=== PATIENT | male | born 1970 | race African-American/Black ===

== ENCOUNTER 2016-07-24 11:34 | Emergency (ER) | payer OTHER ==
[~2016-07-24] VITALS: Ht 177.8 cm; Wt 95.0 kg
[~2016-07-24 11:34] MED LIST: CLON0.1T14 PO; COR12 PO; LISI10TA5 PO
[2016-07-24] MEDS ORDERED: SODIUM CHLORIDE 0.9% 1,000 ML IV ONE (12:30)
[2016-07-24] MEDS ORDERED: FAMOTIDINE 20MG/2ML VIAL IV STA (12:30)
[2016-07-24] MEDS ORDERED: MORPHINE SULFATE 4 MG/ML CPJ (NOT FOR IM USE) IV STA (12:30)
[2016-07-24] MEDS ORDERED: ONDANSETRON HCL 4MG/2ML VIAL IV STA (12:30)
[2016-07-24] MEDS ORDERED: HYDRALAZINE 20MG/ML VIAL IV ONE (12:45)
[2016-07-24 13:06] LABS: HEMATOCRIT. 48.8 % (42.0-52.0); MEAN CORPUSCULAR HEMOGLOBIN 30.8 pg (28.0-32.0); MEAN CORPUSCULAR HGB CONC 34.8 g/dL (31.0-37.0); MEAN CORPUSCULAR VOLUME 88.7 fL (80.0-94.0); MEAN PLATELET VOLUME 9.1 fl (7.4-10.4); PLATELET 215 x1000/uL (130-400); RED CELL DISTRIBUTION WIDTH 13.5 % (11.6-14.6); WHITE BLOOD COUNT 15.9 x1000/uL (4.5-11.0)
[2016-07-24 13:08] LABS: DIFFERENTIAL COMMENT 1
[2016-07-24 13:12] LABS: CHLORIDE 103 mEq/L (98-107); INDEX HEMOLYSI 1 (1-3); INDEX ICTERIC 1 (1-4); INDEX LIPEMIC 1 (1-3)
[2016-07-24 13:14] LABS: PROTHROMBIN TIME 10.4 sec
[2016-07-24 13:20] LABS: ALANINE AMINOTRANSFERASE 45 IU/L (13-61); ALBUMIN 5.1 g/dL (3.4-5.0); ANION GAP 14; CALCIUM 10.2 mg/dL (8.5-10.1); CARBON DIOXIDE 27 mEq/L (21-32); LIPASE 89 IU/L (73-393); UREA NITROGEN BLOOD 16 mg/dL (7-21); eGFR 56 mL/min (>60)
[2016-07-24 13:29] LABS: PLATELET ESTIMATE NORMAL
[2016-07-24] MEDS ORDERED: METRONIDAZOLE 500 MG PREMIX 100 ML IV ONE (13:45)
[2016-07-24] MEDS ORDERED: LEVOFLOXACIN 750MG PREMIX 150 ML IV ONE (13:45)
[2016-07-24] MEDS ORDERED: SODIUM CHLORIDE 0.9% 1000ML BAG (SEPSIS BOLUS) IV ONE (13:45)
[2016-07-24] MEDS ORDERED: IOHEXOL-300 100 ML BOTTLE ONE (14:01)
[2016-07-24] MEDS ORDERED: SODIUM CHLORIDE 0.9% 10ML VIAL ONE (14:01)
[2016-07-24 15:37] LABS: LACTIC ACID 3.2 mmol/L (0.4-2.0)
[2016-07-24 15:46] LABS: CLARITY URINE CLEAR (CLEAR); COLOR URINE YELLOW (YELLOW); GLUCOSE URINE NEGATIVE (NEGATIVE); KETONES URINE NEGATIVE (NEGATIVE); LEUKOCYTE ESTERASE URINE NEGATIVE (NEGATIVE); NITRITE URINE NEGATIVE (NEGATIVE); OCCULT BLOOD URINE NEGATIVE (NEGATIVE); PROTEIN URINE TRACE (NEGATIVE); SPECIFIC GRAVITY URINE 1.039 (1.005-1.030); UROBILINOGEN URINE 0.2 E.U./dL (0.2-1.0)
[2016-07-24] MEDS ORDERED: HYDRALAZINE 20MG/ML VIAL IV SCH (16:02)
[2016-07-24 16:05] LABS: *AMPHETAMINES SCREEN URINE NEGATIVE (NEGATIVE); *BARBITURATES SCREEN URINE NEGATIVE (NEGATIVE); *BENZODIAZEPINES SCREEN URINE NEGATIVE (NEGATIVE); *COCAINE SCREEN URINE NEGATIVE (NEGATIVE); CANNABINOID URINE SCREEN PRESUMTIVE POSITIVE (NEGATIVE); ECSTASY MDMA SCREEN URINE NEGATIVE (NEGATIVE); METHADONE URINE SCREEN NEGATIVE (NEGATIVE); OPIATES URINE SCREEN PRESUMTIVE POSITIVE (NEGATIVE); PHENCYCLIDINE URINE SCREEN NEGATIVE (NEGATIVE)
[2016-07-24 16:14] LABS: BACTERIA URINE TRACE; RBC URINE NONE SEEN /hpf (0-2); SQUAMOUS EPITHELIAL CELL URINE RARE /lpf (RARE/1+); WBC URINE NONE SEEN /hpf (0-2)
[2016-07-24 19:12] VITALS: BP 165/111
[2016-07-24] MEDS ORDERED: TRAMADOL 50MG TABLET PO PRN (19:30)
[2016-07-24] MEDS ORDERED: ENOXAPARIN 40MG/0.4ML SYR SUBCUT SCH (19:30)
[2016-07-24] MEDS ORDERED: CLONIDINE 0.1MG TABLET PO PRN (19:30)
[2016-07-24] MEDS ORDERED: MORPHINE SULFATE 2 MG/ML CPJ (NOT FOR IM USE) IV PRN (19:30)
[2016-07-24] MEDS ORDERED: MAGNESIUM/ALUMINUM HYDROXIDE/SIMETHICONE 30ML UDC PO PRN (19:30)
[2016-07-24] MEDS ORDERED: AMLODIPINE 10MG TABLET PO SCH (19:30)
[2016-07-24] MEDS ORDERED: PIPERACILLIN/TAZ 3.375G PREMIX 50 ML IV SCH (19:30)
[2016-07-24] MEDS ORDERED: NA PHOS,M-B/NA PHOS,DI-BA ENEMA 118ML PR PRN (19:30)
[2016-07-24] MEDS ORDERED: GUAIFENESIN 200MG/10ML SUGAR FREE UDC PO PRN (19:30)
[2016-07-24] MEDS ORDERED: DIPHENHYDRAMINE 50MG/ML VIAL IV PRN (19:30)
[2016-07-24] MEDS ORDERED: ONDANSETRON HCL 4MG/2ML VIAL IV PRN (19:30)
[2016-07-24] MEDS ORDERED: ACETAMINOPHEN 325MG TABLET PO PRN (19:30)
[2016-07-24] MEDS ORDERED: IPRATROPIUM/ALBUTEROL 0.5-3(2.5)MG/3ML NEB INH PRN (19:30)
[2016-07-24] MEDS ORDERED: NITROGLYCERIN 0.4MG TABLET SL SL PRN (19:30)
[2016-07-24] MEDS ORDERED: LORAZEPAM 2MG/ML CPJ IV PRN (19:30)
[2016-07-24] MEDS ORDERED: LISINOPRIL 20MG TABLET PO SCH (21:00)
[2016-07-24] MEDS ORDERED: METOPROLOL TARTRATE 25MG TABLET PO SCH (21:00)
[2016-07-24] MEDS ORDERED: ZOLPIDEM TARTRATE 5MG TABLET PO PRN (21:00)
[2016-07-25] MEDS ORDERED: PANTOPRAZOLE SODIUM 40 MG/VIAL IV SCH (09:00)
== END 2016-07-24 19:21 | disposition short-term general hospital (02) ==
LOC: ER 11:37
DX: R19.7 Diarrhea, unspecified (principal); R11.2 Nausea with vomiting, unspecified; K92.2 Gastrointestinal hemorrhage, unspecified; I16.0 Hypertensive urgency; K52.9 Noninfective gastroenteritis and colitis, unspecified; I10 Essential (primary) hypertension; F12.10 Cannabis abuse, uncomplicated; Z91.14 Patient's other noncompliance with medication regimen; Z79.899 Other long term (current) drug therapy
CPT/HCPCS: 36415; 74177; 80053; 80061; 80305; 81001; 83036; 83605; 83690; 85025; 85610; 86850; 86900; 86901; 87040; 96361; 96365; 96367; 96375; 96376; 99291; A4216; J0360; J1956; J2270; J2405; J3490; J7030; Q9967; Z7610

== ENCOUNTER 2018-04-28 18:40 | Emergency (ER) | payer OTHER ==
[~2018-04-28] VITALS: Ht 182.9 cm; Wt 97.1 kg
[2018-04-28] MEDS ORDERED: LABETALOL 5MG/ML SYR 20 MG/4 ML SYRINGE IV PRN (18:45)
[2018-04-28] MEDS ORDERED: LABETALOL HCL 20MG/4ML CARPUJECT IV PRN (19:00)
[2018-04-28 19:08] LABS: BASOPHILS % 1.3 % (0.0-2.0); EOSINOPHILS % 1.5 % (0.0-5.0); HEMATOCRIT. 41.7 % (42.0-52.0); HEMOGLOBIN. 14.7 g/dL (14.0-18.0); LYMPHOCYTES % 33.1 % (20.0-50.0); MEAN CORPUSCULAR HEMOGLOBIN 31.2 pg (28.0-32.0); MEAN CORPUSCULAR VOLUME 88.6 fL (80.0-94.0); MEAN PLATELET VOLUME 9.4 fl (7.4-10.4); MONOCYTES % 5.7 % (2.0-8.0); NEUTROPHILS % 58.4 % (40.0-76.0); PLATELET 195 x1000/uL (130-400)
[2018-04-28 19:14] LABS: CHLORIDE 105 mEq/L (98-107)
[2018-04-28 19:18] LABS: ETHANOL BLOOD < 10 mg/dL
[2018-04-28 19:20] LABS: LDL CHOLESTEROL 101 mg/dL (5-100)
[2018-04-28] MEDS ORDERED: ASPIRIN 81MG TABLET PO ONE (19:30)
[2018-04-28 19:46] LABS: CLARITY URINE CLEAR (CLEAR); COLOR URINE YELLOW (YELLOW); KETONES URINE NEGATIVE (NEGATIVE); LEUKOCYTE ESTERASE URINE NEGATIVE (NEGATIVE); NITRITE URINE NEGATIVE (NEGATIVE); OCCULT BLOOD URINE NEGATIVE (NEGATIVE); PH URINE 7.5 (4.5-8.0); PROTEIN URINE NEGATIVE (NEGATIVE); SPECIFIC GRAVITY URINE 1.009 (1.005-1.030); UROBILINOGEN URINE 0.2 E.U./dL (0.2-1.0)
[2018-04-28 19:58] LABS: *BARBITURATES SCREEN URINE NEGATIVE (NEGATIVE); *BENZODIAZEPINES SCREEN URINE NEGATIVE (NEGATIVE)
[2018-04-28 20:00] LABS: *AMPHETAMINES SCREEN URINE NEGATIVE (NEGATIVE); *COCAINE SCREEN URINE NEGATIVE (NEGATIVE); CANNABINOID URINE SCREEN PRESUMTIVE POSITIVE (NEGATIVE); METHADONE URINE SCREEN NEGATIVE (NEGATIVE); OPIATES URINE SCREEN NEGATIVE (NEGATIVE); PHENCYCLIDINE URINE SCREEN NEGATIVE (NEGATIVE)
[2018-04-28] MEDS ORDERED: IOHEXOL-350 100 ML BOTTLE ONE (20:39)
[2018-04-28] MEDS ORDERED: LABETALOL 5MG/ML SYR 20 MG/4 ML SYRINGE IV ONE (22:15)
[2018-04-29] MEDS ORDERED: LABETALOL HCL 20MG/4ML CARPUJECT IV SCH (01:15)
[2018-04-29 03:52] VITALS: BP 158/103
== END 2018-04-29 03:54 | disposition short-term general hospital (02) ==
LOC: ER 18:40 → EDBEDREQ 18:46 → ER 04-29 03:54 → CANBEDREQ 04-29 04:01
DX: I63.9 Cerebral infarction, unspecified (principal); R29.810 Facial weakness; I10 Essential (primary) hypertension; F12.10 Cannabis abuse, uncomplicated
CPT/HCPCS: 36415; 70450; 70496; 70498; 71045; 80053; 80305; 81003; 83721; 84484; 85025; 85610; 93005; 96374; 96375; 99291; G0482; J3490; Q9967

== ENCOUNTER 2022-08-29 18:30 | Inpatient (IN) | payer OTHER, MEDICAID ==
[~2022-08-29] VITALS: Ht 185.4 cm; Wt 88.7 kg
[~2022-08-29 18:30] MED LIST changes: +LISI10TA26 PO; -LISI10TA5 PO
[2022-08-29] MEDS ORDERED: NICARDIPINE 50 MG in SODIUM CHLORIDE 0.9% 230 ML IV STA (19:21)
[2022-08-29 19:40] LABS: BASOPHILS % 0.5 % (0.0-2.0); EOSINOPHILS % 0.8 % (0.0-5.0); HEMATOCRIT. 38.6 % (42.0-52.0); HEMOGLOBIN. 13.2 g/dL (14.0-18.0); LYMPHOCYTES % 26.4 % (20.0-50.0); MEAN CORPUSCULAR HEMOGLOBIN 30.6 pg (28.0-32.0); MEAN CORPUSCULAR VOLUME 89.2 fL (80.0-94.0); MEAN PLATELET VOLUME 10.9 fl (7.4-10.4); NEUTROPHILS % 67.3 % (40.0-76.0); PLATELET 198 x1000/uL (130-400); RED BLOOD CELL COUNT 4.33 mill/uL (4.7-6.1); RED CELL DISTRIBUTION WIDTH 13.7 % (11.6-14.6)
[2022-08-29] MEDS ORDERED: SODIUM CHLORIDE 0.9% 1,000 ML IV ONE (19:45)
[2022-08-29] MEDS ORDERED: LABETALOL 5MG/ML SYR 20 MG/4 ML SYRINGE IV ONE ×3 (19:45→21:00)
[2022-08-29] MEDS ORDERED: NICARDIPINE 50 MG in SODIUM CHLORIDE 0.9% 230 ML IV NR (19:45)
[2022-08-29 19:50] LABS: CHLORIDE 94 mEq/L (98-107)
[2022-08-29 19:51] LABS: PROTHROMBIN TIME 10.3 sec (9.6-11.0)
[2022-08-29 19:59] LABS: ETHANOL BLOOD < 10 mg/dL
[2022-08-29 20:10] LABS: CLARITY URINE CLEAR (CLEAR); COLOR URINE YELLOW (YELLOW); KETONES URINE NEGATIVE (NEGATIVE); LEUKOCYTE ESTERASE URINE NEGATIVE (NEGATIVE); NITRITE URINE NEGATIVE (NEGATIVE); OCCULT BLOOD URINE NEGATIVE (NEGATIVE); PROTEIN URINE NEGATIVE (NEGATIVE); SPECIFIC GRAVITY URINE 1.029 (1.005-1.030); UROBILINOGEN URINE 0.2 E.U./dL (0.2-1.0)
[2022-08-29] MEDS ORDERED: INSULIN REGULAR (HUMULIN R) 300UNITS/3ML VIAL IV ONE ×2 (20:15→23:15)
[2022-08-29 20:23] LABS: *AMPHETAMINES SCREEN URINE NEGATIVE (NEGATIVE); *BARBITURATES SCREEN URINE NEGATIVE (NEGATIVE); *BENZODIAZEPINES SCREEN URINE NEGATIVE (NEGATIVE); *COCAINE SCREEN URINE NEGATIVE (NEGATIVE); CANNABINOID URINE SCREEN PRESUMTIVE POSITIVE (NEGATIVE); METHADONE URINE SCREEN NEGATIVE (NEGATIVE); OPIATES URINE SCREEN NEGATIVE (NEGATIVE); PHENCYCLIDINE URINE SCREEN NEGATIVE (NEGATIVE)
[2022-08-29] MEDS ORDERED: ONDANSETRON HCL 4MG/2ML INJ IV ONE (21:15)
[2022-08-30] MEDS ORDERED: INSULIN REGULAR 100U/100ML PMX 100 ML IV SCH ×2 (00:30→00:45)
[2022-08-30 01:20] LABS: HEMATOCRIT. 46.8 % (42.0-52.0); HEMOGLOBIN. 15.7 g/dL (14.0-18.0); LYMPHOCYTES % 9.7 % (20.0-50.0); MEAN CORPUSCULAR HEMOGLOBIN 30.3 pg (28.0-32.0); MEAN CORPUSCULAR VOLUME 90.1 fL (80.0-94.0); MEAN PLATELET VOLUME 10.5 fl (7.4-10.4); MONOCYTES % 2.4 % (2.0-8.0); NEUTROPHILS % 87.9 % (40.0-76.0); PLATELET 224 x1000/uL (130-400); RED BLOOD CELL COUNT 5.19 mill/uL (4.7-6.1); RED CELL DISTRIBUTION WIDTH 13.4 % (11.6-14.6)
[2022-08-30] MEDS ORDERED: LORAZEPAM 2MG/ML CPJ IV ONE (01:45)
[2022-08-30 02:30] VITALS: BP 148/92
[2022-08-30] MEDS ORDERED: DEXTROSE 50% WATER 25ML (12.5GM) IV PRN (20:45)
[2022-08-30] MEDS ORDERED: BLOOD SUGAR DIAGNOSTIC STRIP TEST SCH (20:45)
[2022-08-30] MEDS ORDERED: DEXTROSE 50% WATER 50ML (25GM) IV PRN (20:45)
== END 2022-08-30 06:32 | disposition short-term general hospital (02) | DRG 79 ==
LOC: ER 18:30 → MICUSO 08-30 00:30 → EDBEDREQ 08-30 00:48 → EDBEDREQSVC 08-30 00:48 → MICUSO 08-30 04:10
PROVIDERS: ADMIT Internal Medicine; ATTEND Internal Medicine
DX: I67.4 Hypertensive encephalopathy (principal); I10 Essential (primary) hypertension; E11.65 Type 2 diabetes mellitus with hyperglycemia; Z86.73 Personal history of transient ischemic attack (TIA), and cerebral infarction without residual deficits; Z91.199 Patient's noncompliance with other medical treatment and regimen due to unspecified reason
CPT/HCPCS: 36415; 70496; 70498; 71045; 80053; 80305; 80320; 81003; 82010; 82962; 84484; 85025; 93005; 99291; J1815; J2060; J2405; J3490; J7030; J7050; G0480